=== PATIENT | female | born 1980 | race Two or more races ===

== ENCOUNTER 2018-02-02 08:25 | Day surgery (SDC) | payer OTHER | END 2018-02-02 13:25 | disposition home or self-care (01) | LOC: CIR.AMB 08:25 | DX: O02.1 Missed abortion (principal) ==

== ENCOUNTER 2018-02-22 10:08 | Outpatient (CLI) | payer OTHER | END 2018-02-22 10:31 | disposition home or self-care (01) | LOC: RAD 10:08 | DX: K21.9 Gastro-esophageal reflux disease without esophagitis (principal); K92.2 Gastrointestinal hemorrhage, unspecified; K52.9 Noninfective gastroenteritis and colitis, unspecified ==

== ENCOUNTER 2018-03-11 10:15 | Outpatient (CLI) | payer OTHER | END 2018-03-11 16:39 | disposition home or self-care (01) | LOC: RAD 10:15 | DX: M54.5 Low back pain (principal) | CPT/HCPCS: 72148 ==

== ENCOUNTER 2018-05-22 23:28 | Emergency (ER) | payer OTHER ==
[~2018-05-22] VITALS: Ht 160 cm; Wt 63.5 kg
== END 2018-05-23 03:27 | disposition home or self-care (01) ==
LOC: ER 23:28
DX: O20.0 Threatened abortion (principal)

== ENCOUNTER 2019-01-17 14:38 | Outpatient (CLI) | payer OTHER | END 2019-01-17 16:02 | disposition home or self-care (01) | LOC: NST 14:38 | DX: Z34.83 Encounter for supervision of other normal pregnancy, third trimester (principal) ==

== ENCOUNTER 2019-02-02 15:13 | Inpatient (IN) | payer OTHER ==
[~2019-02-02] VITALS: Ht 160 cm; Wt 78.9 kg
[2019-03-07] MEDS ORDERED: LEVOTHYROXINE25 MCG PO (11:05)
[2019-03-07] MEDS ORDERED: PRENATAL TABLE1 EAC1 PO (11:06)
[2019-03-07] MEDS ORDERED: FERROUS SULFAT325 MG PO (11:07)
== END 2019-03-09 15:07 | disposition home or self-care (01) | DRG 807 ==
LOC: OB/GYN 02-09 12:00 → LDR 03-07 08:25 → OB/GYN 03-07 12:00
PROVIDERS: ADMIT Obstetrics & Gynecology Maternal & Fetal Medicine
PROC: 10E0XZZ Delivery of Products of Conception, External Approach (ICD-10-PCS; principal; 2019-03-07)
PROC: 0KQM0ZZ Repair Perineum Muscle, Open Approach (ICD-10-PCS; 2019-03-07)
PROC: 3E033VJ Introduction of Other Hormone into Peripheral Vein, Percutaneous Approach (ICD-10-PCS; 2019-03-07)
PROC: 10907ZC Drainage of Amniotic Fluid, Therapeutic from Products of Conception, Via Natural or Artificial Opening (ICD-10-PCS; 2019-03-07)
PROC: 4A1HXCZ Monitoring of Products of Conception, Cardiac Rate, External Approach (ICD-10-PCS; 2019-03-07)
DX: O70.1 Second degree perineal laceration during delivery (principal); Z37.0 Single live birth; Z3A.40 40 weeks gestation of pregnancy